=== PATIENT | male | born 1995 | race American Indian/Alaskan Native ===

== ENCOUNTER 2016-11-10 07:35 | Emergency (ER) | payer BC ==
[2016-11-10 08:34] LABS: Basophils % (Auto) 1.1 % (0.0-1.8); Eosinophils % (Auto) 2.4 % (0.0-4.3); Hematocrit 40.5 % (35.5-45.6); Hemoglobin 13.2 gm/dl (11.8-15.2); Mean Corpuscular HGB Conc 33 % (32-34); Mean Corpuscular Hemoglobin 30 pg (28-32); Mean Corpuscular Volume 93 fl (84-94); Platelet Count 217 K/mm3 (140-440); Red Blood Count 4.37 M/mm3 (3.65-5.03); Red Cell Distribution Width 13.7 % (13.2-15.2); White Blood Count 8.6 K/mm3 (4.5-11.0)
[2016-11-10 08:55] LABS: Alanine Aminotransferase 18 units/L (7-56); Albumin 4.4 g/dL (3.9-5); Albumin/Globulin Ratio 1.8 %; Alkaline Phosphatase 70 units/L (35-129); Anion Gap 21 mmol/L; Blood Urea Nitrogen 11 mg/dL (9-20); Calcium 8.7 mg/dL (8.4-10.2); Carbon Dioxide 21 mmol/L (22-30); Chloride 100.3 mmol/L (98-107); Glucose 166 mg/dL (75-100); Lipase 19 units/L (13-60); Potassium 3.4 mmol/L (3.6-5.0); Sodium 139 mmol/L (137-145); Total Protein 6.9 g/dL (6.3-8.2)
[2016-11-10 09:38] LABS: Bilirubin,Urine NEG (Negative); Blood,Urine LG (Negative); Ketones,Urine TR mg/dL (Negative); Leukocyte Esterase,Urine TR (Negative); Mucus,Urine 3+ /HPF; Nitrite,Urine NEG (Negative); Urobilinogen,Urine < 2.0 mg/dL (<2.0)
[2016-11-10 09:42] LABS: RBC,Urine < 1.0 /HPF (0.0-6.0)
[2016-11-10] MEDS ORDERED: MORPHINE IV ONE (10:50)
[2016-11-10] MEDS ORDERED: ZOFRAN IV ONE (10:50)
--- NOTE | 2016-11-10 11:05 | Emergency Department Report ---
ED Abdominal Pain HPI - General Chief Complaint: Abdominal Pain Stated Complaint: RT SIDE PAIN/POSS APPENDIX Time Seen by Provider: 11/10/16 10:38 Source: patient, family Mode of arrival: Ambulatory Limitations: No Limitations - History of Present Illness Initial Comments: Patient is a 21-year-old male who presents to the emergency department with complaint of right lower quadrant pain since earlier this morning. Significant pain on movement. Describes the pain as sharp. He has some nausea and vomiting. Denies fevers. -: Sudden Location: RLQ Radiation: none Migration to: no migration Severity: mild Quality: sharp Consistency: constant Improves With: nothing Worsens With: vomiting, movement Associated Symptoms: nausea, vomiting - Related Data Previous Rx's Medication Instructions Recorded Last Taken Type HYDROcodone/APAP 5-325 [[place] 1 each PO Q6HR PRN #11 tablet 11/10/16 Unknown Rx 5-325 mg TAB] Ibuprofen [Motrin] 600 mg PO Q8H PRN #30 tablet 11/10/16 Unknown Rx Ondansetron [Zofran TAB] 4 mg PO Q8HR PRN #10 tablet 11/10/16 Unknown Rx Tamsulosin [Flomax] 0.4 mg PO QDAY #10 cap 11/10/16 Unknown Rx Allergies Allergy/AdvReac Type Severity Reaction Status Date / Time No Known Allergies Allergy Verified 11/10/16 12:09 ED Review of Systems ROS: Stated complaint: RT SIDE PAIN/POSS APPENDIX Other details as noted in HPI Comment: All other systems reviewed and negative Constitutional: denies: chills, fever Eyes: denies: eye pain, eye discharge, vision change ENT: denies: ear pain, throat pain Respiratory: denies: cough, shortness of breath, wheezing Cardiovascular: denies: chest pain, palpitations Endocrine: no symptoms reported Gastrointestinal: as per HPI, abdominal pain, nausea, vomiting. denies: diarrhea Genitourinary: denies: urgency, dysuria Musculoskeletal: denies: back pain, joint swelling, arthralgia Skin: denies: rash, lesions Neurological: denies: headache, weakness, paresthesias Psychiatric: denies: anxiety, depression Hematological/Lymphatic: denies: easy bleeding, easy bruising ED Past Medical Hx - Past Medical History Previous Medical History?: Yes Hx Asthma: Yes - Surgical History Past Surgical History?: No - Family History Family history: no significant - Social History Smoking Status: Never Smoker Substance Use Type: Marijuana - Medications Home Medications: Home Medications Medication Instructions Recorded Confirmed Last Taken Type HYDROcodone/APAP 5-325 [[place] 1 each PO Q6HR PRN #11 tablet 11/10/16 Unknown Rx 5-325 mg TAB] Ibuprofen [Motrin] 600 mg PO Q8H PRN #30 tablet 11/10/16 Unknown Rx Ondansetron [Zofran TAB] 4 mg PO Q8HR PRN #10 tablet 11/10/16 Unknown Rx Tamsulosin [Flomax] 0.4 mg PO QDAY #10 cap 11/10/16 Unknown Rx ED Physical Exam - General Limitations: No Limitations General appearance: alert, in no apparent distress - Head Head exam: Present: atraumatic, normocephalic - Eye Eye exam: Present: normal appearance - ENT ENT exam: Present: mucous membranes moist - Neck Neck exam: Present: normal inspection - Respiratory Respiratory exam: Present: normal lung sounds bilaterally. Absent: respiratory distress - Cardiovascular Cardiovascular Exam: Present: regular rate, normal rhythm. Absent: systolic murmur, diastolic murmur, rubs, gallop - GI/Abdominal GI/Abdominal exam: Present: tenderness, guarding, normal bowel sounds. Absent: rebound - Rectal Rectal exam: Present: deferred - Extremities Exam Extremities exam: Present: normal inspection - Back Exam Back exam: Present: normal inspection - Neurological Exam Neurological exam: Present: alert, oriented X3 - Psychiatric Psychiatric exam: Present: normal affect, normal mood - Skin Skin exam: Present: warm, dry, intact, normal color. Absent: rash ED Course Vital Signs 11/10/16 11/10/16 07:56 12:04 Temperature 97.6 F 97.8 F Pulse Rate 54 L 70 Respiratory 22 16 Rate Blood Pressure 163/101 Blood Pressure 115/78 [Right] O2 Sat by Pulse 100 100 Oximetry ED Medical Decision Making - Lab Data Result diagrams: 11/10/16 08:07 11/10/16 08:07 Laboratory Results - last 24 hr 11/10/16 11/10/16 11/10/16 08:07 08:07 09:03 WBC 8.6 RBC 4.37 Hgb 13.2 Hct 40.5 MCV 93 MCH 30 MCHC 33 RDW 13.7 Plt Count 217 Lymph % (Auto) 49.9 H [place] % (Auto) 8.3 H Eos % (Auto) 2.4 Baso % (Auto) 1.1 Lymph # 4.3 [place] # 0.7 Eos # 0.2 Baso # 0.1 Seg Neutrophils % 38.3 L Seg Neutrophils # 3.3 Sodium 139 Potassium 3.4 L Chloride 100.3 Carbon Dioxide 21 L Anion Gap 21 BUN 11 Creatinine 1.0 Estimated GFR > 60 BUN/Creatinine Ratio 11.00 Glucose 166 H Calcium 8.7 Total Bilirubin 0.60 AST 27 ALT 18 Alkaline Phosphatase 70 Total Protein 6.9 Albumin 4.4 Albumin/Globulin Ratio 1.8 Lipase 19 Urine Color Yellow Urine Turbidity Clear Urine pH 5.0 Ur Specific [place] 1.024 Urine Protein 30 mg/dl Urine Glucose (UA) 50 Urine Ketones Tr Urine Blood Lg Urine Nitrite Neg Urine Bilirubin Neg Urine Urobilinogen < 2.0 Ur Leukocyte Esterase Tr Urine WBC (Auto) 9.0 H Urine RBC (Auto) < 1.0 U Epithel Cells (Auto) 1.0 Urine Mucus 3+ - Medical Decision Making Patient is a 21-year-old male who presents emergency Department with complaint of right lower quadrant tenderness he is moderately tender in his right lower quadrant. The pain started this morning. He's had some nausea and vomiting. White count is normal and the rest of his labs are unremarkable. Plan to CT with oral and IV contrast given the patient's body habitus. CT shows 3 mm stone on the right. There is some mild obstruction. Plan to treat with a liter of IV fluid and NSAID and will discharge home. We'll give referral to urology. Critical care attestation.: If time is entered above; I have spent that time in minutes in the direct care of this critically ill patient, excluding procedure time. ED Disposition Clinical Impression: Renal colic on right side Disposition: DC-01 TO HOME OR SELFCARE Is pt being admited?: No Condition: Stable Instructions: Renal Colic (ED) Additional Instructions: Please follow up with [place] [facility]. Call Prescriptions: HYDROcodone/APAP 5-325 [[place] 5-325 mg TAB] 1 each PO Q6HR PRN #11 tablet PRN Reason: Pain Ibuprofen [Motrin] 600 mg PO Q8H PRN #30 tablet PRN Reason: Pain Ondansetron [Zofran TAB] 4 mg PO Q8HR PRN #10 tablet PRN Reason: Nausea And Vomiting Tamsulosin [Flomax] 0.4 mg PO QDAY #10 cap Referrals: PRIMARY CARE,MD [Primary Care Provider] - 3-5 Days
[2016-11-10] MEDS ORDERED: NACL ONE (12:06)
[2016-11-10 13:12] VITALS: BP 115/78
--- NOTE | 2016-11-10 14:11 | Cat Scan Report ---
CT SCAN OF THE ABDOMEN AND PELVIS WITH CONTRAST: HISTORY: Right lower quadrant abdominal pain.. TECHNIQUE: Helical CT in 1.25mm intervals following IV contrast. Sagittal and coronal reconstructions. FINDINGS: The liver is normal in size and is without focal defect. There appears to be mild gallbladder wall edema which is of uncertain significance. No abnormal dilatation or calcified gallstones are identified. The spleen and pancreas demonstrate a normal size and attenuation with no evidence of abnormal mass. Mild right hydronephrosis is identified. A 3 mm stone is suspected in the distal right ureter on image [id number]. No other nephrolithiasis is appreciated on this contrast exam. The adrenal glands and bladder are unremarkable. There is no intestinal obstruction or ascites. Normal appendix. The abdominal aorta is normal. No abnormalities are identified within the retroperitoneum or mesentery. There is no evidence of peritoneal air or fluid. There is no evidence of any abnormal masses or fluid collections within the pelvis. No adenopathy is identified. IMPRESSION: 3 mm distal right ureteral stone, mildly obstructing.
[2016-11-10] MEDS ORDERED: TORADOL IV ONE (14:13)
[2016-11-10] MEDS ORDERED: NACL 0.9% 1000 ML 1,000 ML IV ONE (14:13)
== END 2016-11-10 16:00 | disposition home or self-care (01) ==
LOC: ED 07:35
DX: N23 Unspecified renal colic (principal); J45.909 Unspecified asthma, uncomplicated; F12.10 Cannabis abuse, uncomplicated
CPT/HCPCS: 36415; 74177; 80053; 81001; 83690; 85025; 96361; 96374; 96375; 99284; J1885; J2270; J2405; J7030; Q9967